=== PATIENT | female | born 1990 | race Caucasian/White ===

== ENCOUNTER 2016-08-30 15:21 | Emergency (ER) | payer BC ==
[2016-08-30 16:03] VITALS: BP 115/69
--- NOTE | 2016-08-30 16:20 | UC ---
Ear Complaint HPI - HPI Summary HPI Summary: HAD SINUS INFECTION TWO WEEKS AGO, SYMPTOMS RESOLVED, HOWEVER, FOR LAST TWO DAYS HAS HAD EAR PRESSURE L>R. NO FEVER. NO SORE THROAT. NO DISCHARGE. - History of Current Complaint Chief Complaint: UCEar Stated Complaint: LFT EAR COMPLAINT Time Seen by Provider: 08/30/16 15:46 Hx Obtained From: Patient Hx Last Menstrual Period: 07/31/16 Onset/Duration: Gradual Onset, Lasting Days, Still Present Severity Initially: Mild Severity Currently: Moderate Associated Signs/Symptoms: Positive: URI Symptoms - Allergies/Home Medications Allergies/Adverse Reactions: Allergies Allergy/AdvReac Type Severity Reaction Status Date / Time Sulfamethoxazole Allergy Hives Verified 08/30/16 16:03 w/Trimethoprim [From Bactrim] Home Medications: Home Medications Multivitamins/Minerals TAB* [Theragran/minerals TAB*] 1 tab PO DAILY 08/30/16 [ History Confirmed 08/30/16] PMH/Surg Hx/FS Hx/Imm Hx Previously Healthy: Yes Other History Of: Negative For: HIV, Hepatitis B, Hepatitis C, Anticoagulant Therapy - Surgical History Surgical History: Yes Surgery Procedure, Year, and Place: ear tubes - Family History Known Family History: Positive: None Negative: Respiratory Disease - Social History Occupation: Employed Full-time Lives: With Family Alcohol Use: Occasionally Alcohol Amount: NOT WHILE Substance Use Type: None Smoking Status (MU): Former Smoker When Did the Patient Quit Smoking/Using Tobacco: 1-2 years ago Review of Systems Constitutional: Negative Skin: Negative Eyes: Negative ENT: Ear Ache Respiratory: Negative Cardiovascular: Negative Gastrointestinal: Negative Genitourinary: Negative Motor: Negative Neurovascular: Negative Musculoskeletal: Negative Neurological: Negative Psychological: Negative All Other Systems Reviewed And Are Negative: Yes Physical Exam Triage Information Reviewed: Yes Appearance: Well-Appearing, No Pain Distress, Well-Nourished Vital Signs: Initial Vital Signs Temp 97.9 F 08/30/16 16:00 Pulse 88 08/30/16 16:00 Resp 16 08/30/16 16:00 BP 115/69 08/30/16 16:00 Pulse Ox 100 08/30/16 16:00 Vital Signs Reviewed: Yes Eye Exam: Normal ENT: Positive: Hearing grossly normal, Pharynx normal, TM bulging, TM dull Dental Exam: Normal Neck exam: Normal Neck: Positive: Supple, Nontender, No Lymphadenopathy Respiratory Exam: Normal Respiratory: Positive: Chest non-tender, Lungs clear, Normal breath sounds, No respiratory distress, No accessory muscle use Cardiovascular Exam: Normal Cardiovascular: Positive: RRR, No Murmur, Pulses Normal Abdominal Exam: Normal Musculoskeletal Exam: Normal Musculoskeletal: Positive: Strength Intact, ROM Intact Neurological Exam: Normal Psychological Exam: Normal Skin Exam: Normal Ear Complaint Course/Dx - Differential Dx/Diagnosis Differential Diagnosis/HQI/PQRI: Otitis Externa, Otitis Media, Perforated TM, URI Provider Diagnoses: BILATERAL SEROUS OTITIS MEDIA (L>R) Discharge - Discharge Plan Condition: Stable Disposition: HOME Prescriptions: Fluticasone NASAL SPRAY 50MCG* [Flonase NASAL SPRAY 50MCG*] 2 spray BOTH NARES BID #1 btl Meclizine TAB* [Antivert 12.5 TAB*] 25 mg PO TID PRN #21 tab PRN Reason: Dizziness Patient Education Materials: Serous Otitis Media (ED) Referrals: Marnie Karimi MD [Primary Care Provider] -
== END 2016-08-30 16:20 | disposition home or self-care (01) ==
LOC: UCCORT 15:21
DX: H65.93 Unspecified nonsuppurative otitis media, bilateral (principal); Z88.2 Allergy status to sulfonamides; Z87.891 Personal history of nicotine dependence
CPT/HCPCS: 99212; G0463

== ENCOUNTER 2016-09-06 14:10 | Emergency (ER) | payer BC ==
[2016-09-06 14:31] VITALS: BP 120/74
--- NOTE | 2016-09-06 14:47 | UC ---
Throat Pain/Nasal Boy HPI - HPI Summary HPI Summary: DIAGNOSED LAST WEEK WITH SEROUS OTITIS; SINUS PRESSURE AND FACIAL PAIN. DRAINAGE FROM LEFT EAR. NO FEVER. - History of Current Complaint Chief Complaint: UCRespiratory Stated Complaint: SINUS/LEFT EAR COMPLAINT Time Seen by Provider: 09/06/16 14:16 Hx Obtained From: Patient Hx Last Menstrual Period: 08/11/16 Onset/Duration: Gradual Onset, Lasting Weeks, Still Present Severity: Moderate Cough: None Associated Signs & Symptoms: Positive: Sinus Discomfort, Nasal Discharge - Epiglottits Risk Factors Epiglottis Risk Factors: Negative - Allergies/Home Medications Allergies/Adverse Reactions: Allergies Allergy/AdvReac Type Severity Reaction Status Date / Time Sulfamethoxazole Allergy Hives Verified 09/06/16 14:31 w/Trimethoprim [From Bactrim] PMH/Surg Hx/FS Hx/Imm Hx Previously Healthy: Yes Other History Of: Negative For: HIV, Hepatitis B, Hepatitis C, Anticoagulant Therapy - Surgical History Surgical History: Yes Surgery Procedure, Year, and Place: ear tubes - Family History Known Family History: Positive: None Negative: Respiratory Disease - Social History Occupation: Employed Full-time Lives: With Family Alcohol Use: Occasionally Alcohol Amount: NOT WHILE Substance Use Type: None Smoking Status (MU): Former Smoker When Did the Patient Quit Smoking/Using Tobacco: 1-2 years ago Review of Systems Constitutional: Negative Skin: Negative Eyes: Negative ENT: Ear Ache, Nasal Discharge, Sinus Congestion, Sinus Pain/Tenderness Respiratory: Negative Cardiovascular: Negative Gastrointestinal: Negative Genitourinary: Negative Motor: Negative Neurovascular: Negative Musculoskeletal: Negative Neurological: Negative Psychological: Negative All Other Systems Reviewed And Are Negative: Yes Physical Exam Triage Information Reviewed: Yes Appearance: Well-Appearing, Well-Nourished, Pain Distress - MILD Vital Signs: Initial Vital Signs Temp 98.1 F 09/06/16 14:25 Pulse 87 09/06/16 14:25 Resp 16 09/06/16 14:25 BP 120/74 09/06/16 14:25 Pulse Ox 99 09/06/16 14:25 Vital Signs Reviewed: Yes Eye Exam: Normal ENT: Positive: Hearing grossly normal, Pharynx normal, TM bulging, TM dull, Other: - LEFT EAC EDEMA ERRYTHEMA Dental Exam: Normal Neck exam: Normal Neck: Positive: Supple, Nontender, No Lymphadenopathy Respiratory Exam: Normal Respiratory: Positive: Chest non-tender, Lungs clear, Normal breath sounds, No respiratory distress, No accessory muscle use Cardiovascular Exam: Normal Cardiovascular: Positive: RRR, No Murmur, Pulses Normal, Brisk Capillary Refill Abdominal Exam: Normal Musculoskeletal Exam: Normal Musculoskeletal: Positive: Strength Intact, ROM Intact Neurological Exam: Normal Psychological Exam: Normal Skin Exam: Normal Throat Pain/Nasal Course/Dx - Differential Dx/Diagnosis Differential Diagnosis/HQI/PQRI: Otitis Media, URI Provider Diagnoses: SINUSITIS; BILATERAL OTITIS SEROUS; LEFT OTITIS EXTERNA Discharge - Discharge Plan Condition: Stable Disposition: HOME Prescriptions: Amoxicillin/Clavulanate TAB* [Augmentin TAB 875*] 875 mg PO BID #20 tab Neomyc/Polym/HC 1% OTIC SUSP* [Cortisporin Otic Susp 1%*] 4 drop BOTH EARS QID # 1 btl Patient Education Materials: Sinusitis (ED), Otitis Externa (ED) Referrals: Marnie Karimi MD [Primary Care Provider] -
== END 2016-09-06 14:48 | disposition home or self-care (01) ==
LOC: UCCORT 14:10
DX: J32.9 Chronic sinusitis, unspecified (principal); H65.93 Unspecified nonsuppurative otitis media, bilateral; H60.92 Unspecified otitis externa, left ear; Z88.2 Allergy status to sulfonamides; Z87.891 Personal history of nicotine dependence
CPT/HCPCS: 99212; G0463

== ENCOUNTER 2017-12-20 15:08 | Emergency (ER) | payer BC, OTHER ==
[2017-12-20 15:43] VITALS: BP 129/77
--- NOTE | 2017-12-20 15:59 | UC ---
Throat Pain/Nasal Boy HPI - HPI Summary HPI Summary: 27 yo female presents with sinus pain/pressure/congestion, post nasal drip, and productive cough for the last 2 weeks. Has been taking dayquill with no relief. Denies fever, chills, SOB, chest pain, abdominal pain, n/v. - History of Current Complaint Chief Complaint: UCRespiratory Stated Complaint: SINUSES Time Seen by Provider: 12/20/17 15:59 Hx Obtained From: Patient Hx Last Menstrual Period: 11/15/17 Onset/Duration: Gradual Onset Severity: Moderate Pain Intensity: 6 Pain Scale Used: 0-10 Numeric - Allergies/Home Medications Allergies/Adverse Reactions: Allergies Allergy/AdvReac Type Severity Reaction Status Date / Time sulfamethoxazole Allergy Hives Verified 12/20/17 15:37 [From Bactrim] trimethoprim [From Bactrim] Allergy Hives Verified 12/20/17 15:37 Home Medications: Home Medications Dextromethorphan Hb/Doxylamine [Daytime-Nighttime Cough Rlf Lq] 710 ml PO ONCE PRN 12/20/17 [History Confirmed 12/20/17] PMH/Surg Hx/FS Hx/Imm Hx - Additional Past Medical History Additional PMH: None Other History Of: Negative For: HIV, Hepatitis B, Hepatitis C, Anticoagulant Therapy - Surgical History Surgical History: Yes Surgery Procedure, Year, and Place: ear tubes - Family History Known Family History: Positive: None Negative: Respiratory Disease - Social History Occupation: Employed Full-time Lives: With Family Alcohol Use: Occasionally Alcohol Amount: NOT WHILE Substance Use Type: None Smoking Status (MU): Former Smoker When Did the Patient Quit Smoking/Using Tobacco: 1-2 years ago Review of Systems All Other Systems Reviewed And Are Negative: Yes Constitutional: Positive: Negative Skin: Positive: Negative Eyes: Positive: Negative ENT: Positive: Nasal Discharge, Sinus Congestion, Sinus Pain/Tenderness Respiratory: Positive: Cough Cardiovascular: Positive: Negative Gastrointestinal: Positive: Negative Neurovascular: Positive: Negative Neurological: Positive: Negative Psychological: Positive: Negative Physical Exam - Summary Physical Exam Summary: GENERAL: NAD. WDWN. No pain distress. SKIN: No rashes, sores, lesions, or open wounds. HEENT: Head: AT/NC Eyes: EOM intact. Conjunctiva clear without inflammation or discharge. Ears: Hearing grossly normal. TMs intact, no bulging, erythema, or edema. Nose: Nasal mucosa mildly swollen and erythematous with yellow discharge. TTP maxillary and frontal sinus. Positive post nasal drip Throat: Posterior oropharynx without exudates, erythema, or tonsillar enlargement. Uvula midline. NECK: Supple. Nontender. No lymphadenopathy. CHEST: CTAB. No r/r/w. No accessory muscle use. Breathing comfortably and in no distress. CV: RRR. Without m/r/g. Pulses intact. NEURO: Alert. PSYCH: Age appropriate behavior. Triage Information Reviewed: Yes Vital Signs: Initial Vital Signs Temp 97.3 F 12/20/17 15:38 Pulse 102 12/20/17 15:38 Resp 16 12/20/17 15:38 BP 129/77 12/20/17 15:38 Pulse Ox 98 12/20/17 15:38 Vital Signs Reviewed: Yes Throat Pain/Nasal Course/Dx - Course Course Of Treatment: Sinusitis - Differential Dx/Diagnosis Provider Diagnoses: Sinusitis Discharge - Sign-Out/Discharge Documenting (check all that apply): Patient Departure All imaging exams completed and their final reports reviewed: No Studies - Discharge Plan Condition: Stable Disposition: HOME Prescriptions: Amoxicillin/Clavulanate TAB* [Augmentin TAB 875*] 875 mg PO BID #20 tab Patient Education Materials: Sinusitis (ED) Referrals: Jerome Sorenson MD [Primary Care Provider] - Additional Instructions: If you develop a fever, shortness of breath, chest pain, new or worsening symptoms - please call your PCP or go to the ED. - Billing Disposition and Condition Condition: STABLE Disposition: Home
== END 2017-12-20 16:10 | disposition home or self-care (01) ==
LOC: UCCORT 15:08
DX: J32.9 Chronic sinusitis, unspecified (principal); Z88.2 Allergy status to sulfonamides; Z87.891 Personal history of nicotine dependence
CPT/HCPCS: 99212; G0463

== ENCOUNTER 2018-10-12 09:19 | Emergency (ER) | payer OTHER ==
[2018-10-12 09:36] VITALS: BP 110/76
--- NOTE | 2018-10-12 09:44 | UC ---
Ear Complaint HPI - HPI Summary HPI Summary: 28 yo with 4 day history of left ear pain, normal hearing, not responding to antibiotic drops (ofloxacin). Very tender behind the left ear. - History of Current Complaint Chief Complaint: UCEar Stated Complaint: EAR PAIN Time Seen by Provider: 10/12/18 09:29 Hx Obtained From: Patient Hx Last Menstrual Period: ~09/24/18 Onset/Duration: Gradual Onset, Lasting Days - 4 Pain Intensity: 4 Aggravating Factors: Other - touch Alleviating Factors: OTC Meds Associated Signs/Symptoms: Negative: Discharge, Hearing Loss, Trauma to Ear Related History: Seasonal Allergies - Allergies/Home Medications Allergies/Adverse Reactions: Allergies Allergy/AdvReac Type Severity Reaction Status Date / Time sulfamethoxazole Allergy Hives Verified 10/12/18 09:31 [From Bactrim] trimethoprim [From Bactrim] Allergy Hives Verified 10/12/18 09:31 Home Medications: Home Medications Ibuprofen TAB* [Advil TAB*] 600 mg PO Q6H PRN 10/12/18 [History Confirmed ] Ofloxacin 0.3% (Ear Drop)* [Floxin 0.3% OTIC.VAE (Ear Drop)] 10 drop LEFT EAR DAILY 10/12/18 [History Confirmed 10/12/18] Otc Allergy Medication 1 tab PO DAILY PRN 10/12/18 [History Confirmed 10/12/18] Vitamin THERAPEUTIC TAB* [Theragran TAB*] 1 tab PO DAILY 10/12/18 [History Confirmed 10/12/18] PMH/Surg Hx/FS Hx/Imm Hx Previously Healthy: Yes Other History Of: Negative For: HIV, Hepatitis B, Hepatitis C, Anticoagulant Therapy - Surgical History Surgical History: Yes Surgery Procedure, Year, and Place: Ear Tubes as a Child - Family History Known Family History: Positive: None, Unknown - paternal history unknown Negative: Respiratory Disease - Social History Occupation: Employed Full-time Lives: With Family Alcohol Use: Rare Alcohol Amount: NOT WHILE Substance Use Type: None Smoking Status (MU): Never Smoked Tobacco When Did the Patient Quit Smoking/Using Tobacco: 1-2 years ago Review of Systems All Other Systems Reviewed And Are Negative: Yes Constitutional: Positive: Fatigue - poor sleep due to ear pain Skin: Positive: Negative ENT: Positive: Ear Ache. Negative: Sore Throat, Nasal Discharge, Sinus Congestion Is Patient Immunocompromised?: No Physical Exam Triage Information Reviewed: Yes Appearance: Well-Appearing, Pain Distress - mild, Obese Vital Signs: Initial Vital Signs Temp 98.1 F 10/12/18 09:27 Pulse 84 10/12/18 09:27 Resp 18 10/12/18 09:27 BP 110/76 10/12/18 09:27 Pulse Ox 100 10/12/18 09:27 Eyes: Positive: Conjunctiva Clear ENT: Positive: Pharynx normal - past tonsillectomy, TM dull - on the left, Other - left ear canal with edema, no discharge. No pre- or post auricular adenopathy. Area of erythema and tenderness posterior to the ear approx 4 x 3 cam area.. Negative: Nasal congestion Dental Exam: Normal Neck: Positive: Supple, Nontender, No Lymphadenopathy Respiratory: Positive: Lungs clear, Normal breath sounds Cardiovascular: Positive: RRR, No Murmur Musculoskeletal Exam: Normal Neurological Exam: Normal Psychological Exam: Normal Ear Complaint Course/Dx - Course Course Of Treatment: oral cephalexin to treat cellulitis associated with otitis externa. Continue ibuprofen for control of pain. - Differential Dx/Diagnosis Differential Diagnosis/HQI/PQRI: Cellulitis, Otitis Externa, Pharyngitis, URI Provider Diagnosis: Left otitis externa Discharge ED - Sign-Out/Discharge Documenting (check all that apply): Patient Departure All imaging exams completed and their final reports reviewed: No Studies - Discharge Plan Condition: Stable Disposition: HOME Prescriptions: Cephalexin CAP* [Keflex 500 CAP*] 500 mg PO TID #21 cap Patient Education Materials: Otitis Externa (ED) Referrals: Halle Belle NP [Primary Care Provider] - Additional Instructions: Begin cephalexin 500mg three times daily, while continuing ear drops for treatment. Continue ibuprofen 600mg up to 4 times daily as needed for relief of pain. - Billing Disposition and Condition Condition: STABLE Disposition: Home
== END 2018-10-12 10:02 | disposition home or self-care (01) ==
LOC: UCCORT 09:19
DX: H60.92 Unspecified otitis externa, left ear (principal)
CPT/HCPCS: 99212; G0463

== ENCOUNTER 2020-07-20 05:39 | Inpatient (IN) ==
[2020-07-20] MEDS ORDERED: Lactated Ringers 1000 ml BAG 1,000 ML IV SCH (06:00)
[2020-07-20] MEDS ORDERED: Buffered Lidocaine 1% SYRIN 1 ml INTRADERM ONE (06:00)
[2020-07-20] MEDS ORDERED: ceFAZolin 1 GM ADVAN 1 GM ADDV.VIAL IVPB ONE (06:11)
[2020-07-20] MEDS ORDERED: ceFAZolin 2 GM PREMIX 2 GM/50 ML BAG ONE (06:11)
[2020-07-20] MEDS ORDERED: Heparin 5000 UNITS/ML 1 mL VIAL ONE (06:11)
[2020-07-20] MEDS ORDERED: Rocuronium 50 mg VIAL 10 mg/ml 5 ml VIAL (50 mg) ONE ×2 (07:05→08:01)
[2020-07-20] MEDS ORDERED: fentaNYL 250 mcg/5 ml 50 MCG/ML 5 ml VIAL (250 MCG) ONE (07:06)
[2020-07-20] MEDS ORDERED: Midazolam 2 mg/2 ml VIAL 1 mg/ml 2 ml VIAL (2 mg) ONE (07:06)
[2020-07-20] MEDS ORDERED: Propofol 10 MG/ML 20 ML BTL ONE (07:06)
[2020-07-20] MEDS ORDERED: Lidocaine 2% PF 5 ML VIAL ONE (07:06)
[2020-07-20] MEDS ORDERED: Bupivacaine 0.25% SDV 30 ML ONE (07:10)
[2020-07-20] MEDS ORDERED: Methylene Blue 0.5 % 50 MG/10 ML AMP IV ONE (07:10)
[2020-07-20] MEDS ORDERED: Dexamethasone IV 4 MG/ML VIAL 1 ml VIAL ONE (07:50)
[2020-07-20] MEDS ORDERED: Ondansetron 4 mg VIAL 2 MG/ML 2 ml VIAL ONE ×2 (07:50→10:25)
[2020-07-20] MEDS ORDERED: HYDROmorphone 1 MG/1 ML SYRINGE ONE (08:05)
[2020-07-20] MEDS ORDERED: Phenylephrine 40 mcg/mL 10mL (400mcg) SYRINGE ONE (08:18)
[2020-07-20] MEDS ORDERED: EPHEDrine (Pressors) 50 MG/ML VIAL ONE (08:18)
[2020-07-20] MEDS ORDERED: Acetaminophen IV 1 GM/100ML 1,000 MG/100 ML VIAL IVPB ONE (08:22)
[2020-07-20] MEDS ORDERED: DiMENhydriNATE IV 50 mg/ml 1 ml VIAL IV PUSH PRN (08:22)
[2020-07-20] MEDS ORDERED: diPHENhydraMINE IV 50 MG/ML 1 ml VIAL (BENADRYL) IV PRN (08:22)
[2020-07-20] MEDS ORDERED: Naloxone 0.4 mg VIAL 0.4 mg/ml 1 ml VIAL IV PRN (08:22)
[2020-07-20] MEDS ORDERED: Acetaminophen IV 1 GM/100ML 100 ML ONE (08:32)
[2020-07-20] MEDS ORDERED: HYDROcodone/ACET. 7.5/325 LIQ 15 ML UDC PO PRN (10:11)
[2020-07-20] MEDS ORDERED: Ondansetron 4 mg VIAL 2 MG/ML 2 ml VIAL IV PRN (10:11)
[2020-07-20] MEDS ORDERED: Dexmedetomidine 200 mcg/2 ml 2 ml VIAL (200 mcg) ONE (10:18)
[2020-07-20] MEDS ORDERED: fentaNYL 100 mcg/2 ml 50 MCG/ML VIAL ONE (10:24)
[2020-07-20] MEDS: fentaNYL 100 mcg/2 ml 50 MCG/ML VIAL IV PRN ×4 (10:25→10:50)
[2020-07-20] MEDS: Lactated Ringers 1000 ml BAG 1,000 ML IV SCH ×2 (11:44→20:02)
[2020-07-20] MEDS ORDERED: Prochlorperazine 5 mg/ml 2 ml VIAL (10 mg) IV PRN (12:53)
[2020-07-20] MEDS: HYDROmorphone 0.5 MG/0.5 ML SYRINGE IV SLOW PU PRN ×2 (12:55→16:35)
[2020-07-20] MEDS: Heparin 5000 UNITS/ML 1 mL VIAL SUBCUT SCH (22:07)
[2020-07-21] MEDS: Lactated Ringers 1000 ml BAG 1,000 ML IV SCH ×2 (02:40→10:03)
[2020-07-21] MEDS: Heparin 5000 UNITS/ML 1 mL VIAL SUBCUT SCH ×2 (06:09→14:39)
[2020-07-21] MEDS ORDERED: D5W 1/2 NS KCl 20 meq 1000 ml 1,000 ML IV SCH (11:00)
[2020-07-21 11:35] VITALS: BP 103/69
== END 2020-07-21 16:30 | disposition home or self-care (01) ==
LOC: AA 05:39 → SSU 11:24
PROVIDERS: ADMIT Surgery; ATTEND Surgery